=== PATIENT | female | born 1995 | race Caucasian/White ===

== ENCOUNTER 2017-06-11 16:56 | Emergency (ER) | payer BC ==
[2017-06-11 18:11] VITALS: BP 117/70
[2017-06-11] MEDS ORDERED: Acetaminophen TAB* 325 MG PO ONE (18:45)
--- NOTE | 2017-06-11 19:18 | ED ---
Throat Pain/Nasal Congestion - HPI Summary HPI Summary: 21yr old with complaint of two days of fever, chills, sore throat, sinus congestion, cough, headache. No drooling, no stridor, no SOB. No abdominal pain. She is able to take her seizure meds. No other complaints. - History of Current Complaint Chief Complaint: UCGeneralIllness Time Seen by Provider: 06/11/17 18:36 - Allergies/Home Medications Allergies/Adverse Reactions: Allergies Allergy/AdvReac Type Severity Reaction Status Date / Time duloxetine Allergy See Comment Verified 06/11/17 18:12 Home Medications: Home Medications Topiramate TAB(*) [Topamax 25 MG tab] 50 mg PO BID 06/11/17 [History Confirmed 06/11/17] lamoTRIgine TAB(*) [LaMICtal TAB(*)] 250 mg PO BID 06/11/17 [History Confirmed 06/11/17] PMH/Surg Hx/FS Hx/Imm Hx Endocrine/Hematology History: Denies: Hx Diabetes Respiratory History: Denies: Hx Asthma - Surgical History Surgery Procedure, Year, and Place: appy. tonsilectomy. Right knee ACL Infectious Disease History: No Infectious Disease History: Denies: Hx Clostridium Difficile, Hx Hepatitis, Hx Human Immunodeficiency Virus (HIV), Hx of Known/Suspected MRSA, Hx Shingles, Hx Tuberculosis, Hx Known/ Suspected VRE, Hx Known/Suspected VRSA, History Other Infectious Disease, Traveled Outside the [place] in Last 30 Days - Family History Known Family History: Positive: None - Social History Occupation: Student Lives: With Family Alcohol Use: None Substance Use Type: Reports: None Smoking Status (MU): Never Smoked Tobacco Review of Systems Positive: Fever, Chills Positive: Sore Throat, Nasal Discharge Positive: Cough Positive: Headache All Other Systems Reviewed And Are Negative: Yes Physical Exam Triage Information Reviewed: Yes Vital Signs On Initial Exam: Initial Vitals Temp Pulse Resp BP Pulse Ox 100.7 F 101 16 117/70 100 06/11/17 18:06 06/11/17 18:06 06/11/17 18:06 06/11/17 18:06 06/11/17 18:06 Vital Signs Reviewed: Yes Appearance: Positive: Well-Appearing, No Pain Distress Skin: Positive: Warm, Skin Color Reflects Adequate Perfusion Head/Face: Positive: Normal Head/Face Inspection Eyes: Positive: EOMI ENT: Positive: Pharyngeal erythema, Nasal congestion, TMs normal. Negative: Muffled voice, Hoarse voice Neck: Positive: Supple, Nontender. Negative: Nuchal Rigidity Respiratory/Lung Sounds: Positive: Clear to Auscultation, Breath Sounds Present Cardiovascular: Positive: RRR. Negative: Murmur Abdomen Description: Positive: Nontender Musculoskeletal: Positive: Strength/ROM Intact Neurological: Positive: Sensory/Motor Intact, Alert, Oriented to Person Place, Time, CN Intact II-III Psychiatric: Positive: Normal - [place] Coma Scale Best Eye Response: 4 - Spontaneous Best Motor Response: 6 - Obeys Commands Best Verbal Response: 5 - Oriented Coma Scale Total: 15 Diagnostics - Vital Signs Vital Signs Temp Pulse Resp BP Pulse Ox 06/11/17 18:06 100.7 F 101 16 117/70 100 - Laboratory Lab Results: Lab Results 06/11/17 06/11/17 Range/Units 18:38 18:58 Influenza A (Rapid) Negative (Negative) Influenza B (Rapid) Negative (Negative) Group A Strep Rapid Negative (Negative) Lab Statement: Any lab studies that have been ordered have been reviewed, and results considered in the medical decision making process. EENT Course/Dx - Course Course Of Treatment: 21 yr old female with URI symtpoms, rapid flu and strep neg. - Diagnoses Provider Diagnoses: Upper respiratory infection Discharge - Sign-Out/Discharge Documenting (check all that apply): Discharge - Discharge Plan Condition: Good Disposition: HOME Patient Education Materials: Upper Respiratory Infection (ED) Referrals: Stan Dockery [Primary Care Provider] - 2 Days - Billing Disposition and Condition Condition: GOOD Disposition: HOME
== END 2017-06-11 19:28 | disposition home or self-care (01) ==
LOC: UCCORT 16:56
DX: J06.9 Acute upper respiratory infection, unspecified (principal); Z88.8 Allergy status to other drugs, medicaments and biological substances
CPT/HCPCS: 87502; 87651; 99212; A9270-GY; G0463